=== PATIENT | female | born 1950 | race Caucasian/White ===

== ENCOUNTER 2020-08-30 21:02 | Emergency (ER) | payer BC ==
[2020-08-30 21:12] VITALS: BP 200/79; PULSE 79; TEMP 97.8; BMI 29.5
[2020-08-30] MEDS ORDERED: IBUPROFEN 400 MG TABLET (FP) PO ONE (21:36)
== END 2020-08-30 23:20 | disposition home or self-care (01) ==
LOC: JER 21:02 → JERFT 21:02 → JER 23:20
DX: M10.9 Gout, unspecified (principal)
CPT/HCPCS: 73630-TC-RT-FY; 99283-25